=== PATIENT | female | born 1950 | race Caucasian/White ===

== ENCOUNTER → 2017-01-05 | Outpatient (CLI) | payer OTHER ==
[~2017-01-05] MED LIST: ABILIFY2 MG; ALBUTEROL17 GM INH; ATIVAN INJ; COMBIVENT INH14.7 GM INH; CYMBALTA PO; CYMBALTA20 M1; ESTRACE PO; FLEXERIL10 M1 PO; IBUPROFEN600 MG PO; K-DUR20 ME1 DOB; LEVAQUIN PO; NEURONTIN800 MG PO; NEXIUM; PREDNISONE PO; PREDNISONE50 MG PO; PRILOSEC; REGLAN; TESSALON200 MG PO; VITUZ SOLUTION480 ML PO; ZIGRID PO
== END | disposition home or self-care (01) ==
LOC: SEKG 13:52
DX: R00.2 Palpitations (principal)
CPT/HCPCS: 93225; 93226

== ENCOUNTER → 2017-01-11 | Outpatient (CLI) | payer OTHER ==
--- NOTE | ~2017-01-11 | CT57 ---
[facility] A Service of [facility] RADIOLOGY TEXT RESULTS PATIENT: CATHY LUIS LOCATION: [facility] : 54 UNIT #: [id number] AGE: [address]: Richardson Ingram MD SEX: F ORDER DR: [id number] [facility] [address]. [place], [place] [address] [id number] O MR#: [id number] Acc #: [id number] NAME: CATHY LUIS : 1950 SEX: F STUDY DATE/TIME: 01/11/2017 10:26 UNIT: [facility] ROOM: STUDY DESCRIPTION: CT Chest Wo Cont Attending Physician: Richardson Ingram M.D. Referring Physician: Richardson Ingram M.D. Ordering Physician: Richardson Ingram M.D. Primary Care Physician: Ruben Gannon M.D. MEDICAL IMAGING REPORT This report is preliminary unless electronic signature is present EXAM CT chest without contrast, 01/11/2017, 1026 hours. CLINICAL HISTORY 66-year-old woman with a history of chronic cough for several years, progressively worsening recently. History of asthma. COMPARISON Chest x-ray 11/03/2016. No prior chest CT. TECHNIQUE Helical noncontrasted images were obtained from the thoracic inlet through the adrenal glands. Sagittal and coronal reconstructions were performed. Total exam DLP 265 mGy-cm. This CT exam was performed with one or more of the following radiation dose reduction techniques: automatic exposure control, adjustment of mA and/or kV according to patient size, and iterative reconstruction. FINDINGS Images through the thoracic inlet demonstrate no thyromegaly or thyroid mass. There is no adenopathy. Images through the chest demonstrate mild ectasia of the ascending aorta measuring up to 3.4 cm. There are faint coronary calcifications. Cardiac chambers and pericardium are normal. The esophagus is normal. There is no pathologic mediastinal, hilar, or axillary adenopathy. The lungs demonstrate small densely calcified granulomata in the left upper lobe and left lower lobe. There is no evidence of diffuse airspace change. There is minimal reticulonodular change in the medial left lower lobe, likely a small area of scar. There is no definite bronchiectasis or STS. [facility] A Service of [facility] RADIOLOGY TEXT RESULTS PATIENT: CATHY LUIS [facility] UNIT #: [id number] AGE: [address]: Richardson Ingram MD SEX: F ORDER DR: peribronchiolar wall thickening. There are no emphysematous blebs or bullae. Limited views through the upper abdomen are normal. IMPRESSION Chest CT demonstrates benign calcified granulomatous change and minimal reticulonodular change at the medial left lung base felt likely scar. There is no evidence of an acute pulmonary process. No bronchiectasis. No significant emphysematous change or adenopathy. Dictated by... Laverne Landeros M.D. THIS IS AN ELECTRONICALLY VERIFIED REPORT Laverne Landeros M.D. at 01/12/2017 9:27 AM LE/drew TD: 01/11/2017 17:16 JOB #: [id number] MEDICAL IMAGING REPORT COPY
--- NOTE | ~2017-01-11 | PFT ---
[id number] [facility] [address]. [place], [place] [address] [id number] O MR#: [id number] NAME: CATHY LUIS ROOM: SEX: F STUDY DATE/TIME: : 1950 AGE: STUDY DESCRIPTION: Attending Physician: Richardson Ingram M.D. Referring Physician: Richardson Ingram M.D. Primary Care Physician: Ruben Gannon M.D. PULMONARY DIAGNOSTIC REPORT EXAM Pulmonary Function Test DESCRIPTION Spirometry reviewed. FEV1 is 83, FVC is 74, ratio is 85 consistent with no air flow obstruction, no significant bronchodilator response. Total lung capacity is 82. Dictated by... Axel Hutchinson/castillo TD: 01/20/2017 07:12 JOB #: [id number] PULMONARY DIAGNOSTIC REPORT
== END | disposition home or self-care (01) ==
LOC: CCAT 09:48
DX: J45.909 Unspecified asthma, uncomplicated (principal)
CPT/HCPCS: 71250; 94060; 94726; 94729

== ENCOUNTER 2017-01-12 22:29 | Emergency (ER) | payer OTHER | END 2017-01-12 23:49 | disposition home or self-care (01) | LOC: SED 22:29 | DX: R05 Cough (principal); J45.909 Unspecified asthma, uncomplicated; K21.9 Gastro-esophageal reflux disease without esophagitis | CPT/HCPCS: 99282 ==

== ENCOUNTER 2017-03-04 14:05 | Emergency (ER) | payer OTHER, MEDICARE ==
--- NOTE | ~2017-03-04 | CR72 ---
[facility] A Service of [facility] RADIOLOGY TEXT RESULTS PATIENT: CATHY LUIS LOCATION: [facility] : 54 UNIT #: [id number] AGE: [address]: Seamus Lambert MD SEX: F ORDER DR: [id number] [facility] [address] [place], [place] [address] [id number] E MR#: [id number] Acc #: [id number] NAME: CATHY LUIS : 1950 SEX: F STUDY DATE/TIME: 03/04/2017 13:36 UNIT: [facility] ROOM: STUDY DESCRIPTION: CR Chest Single View Portable Attending Physician: Seamus Lambert M.D. Ordering Physician: Seamus Lambert M.D. Primary Care Physician: No Primary Care Physician MEDICAL IMAGING REPORT This report is preliminary unless electronic signature is present EXAM Chest, portable. DATE OF EXAM 03/04/2017, 1336 hours. CLINICAL HISTORY 66-year-old woman with chronic cough and shortness of air, worsening shortness of air and congestion today. COMPARISON 01/11/2017 FINDINGS Upright portable chest demonstrates normal heart size with stable tortuous descending thoracic aorta. Hilar contours are normal. The lungs are clear and there are no effusions. Hardware is present at the lower cervical spine. IMPRESSION No acute cardiopulmonary findings. Dictated by... Laverne Landeros M.D. THIS IS AN ELECTRONICALLY VERIFIED REPORT Laverne Landeros M.D. at 03/07/2017 9:26 AM LE/abigail TD: 03/04/2017 15:30 JOB #: [id number] [facility] A Service [facility] RADIOLOGY TEXT RESULTS PATIENT: CATHY LUIS LOCATION: [facility] : [birth year] UNIT #: [id number] AGE: [address]: Seamus Lambert MD SEX: F ORDER DR: MEDICAL IMAGING REPORT Page 1 of 1 COPY
--- NOTE | ~2017-03-04 | EKG ---
PATIENT: CATHY LUIS UNIT #: [id number] Ventricular Rate: 71 BPM Atrial Rate: 71 BPM P-R Interval: 142 ms QRS Duration: 86 ms Q-T Interval: 402 ms QTC Calculation(Bezet): 436 ms P [place]: 44 degrees Calculated R [place]: -2 degrees Calculated T [place]: -4 degrees Diagnosis Line: Normal sinus rhythm Diagnosis Line: Normal ECG Diagnosis Line: No previous ECGs available Diagnosis Line: Confirmed by GERRI TINAJERO MD ([id number]) on Diagnosis Line: 03/06/2017 8:43:38 AM INTERPRETING MD: SOTERO
[2017-03-04 13:39] LABS: BASOPHIL# 0.1 X10e3 (0-0.3); BASOPHIL% 0.8 % (0-2.5); EOSINOPHIL# 0.1 X10e3 (0-0.7); EOSINOPHIL% 0.8 % (0.0-7.0); HEMOGLOBIN 14.6 gm/dL (12.0-16.0); LYMPHOCYTE# 2.2 X10e3 (1.0-3.5); LYMPHOCYTE% 29.2 % (17.0-45.0); MEAN CELL VOLUME 86.3 FL (83-96); MEAN CORPUSCULAR HEMOGLOBIN 28.6 PG (28-34); MEAN CORPUSCULAR HGB CONC 33.1 g/dL (30-36); MEAN PLATELET VOLUME 9.5 FL (6.5-11.5); MONOCYTE# 0.5 X10e3 (0-1.0); MONOCYTE% 7.2 % (3.0-12.0); NEUTROPHIL# 4.7 X10e3 (1.5-7.1); PLATELET COUNT 250 X10e3 (140-420); RED CELL DISTRIBUTION WIDTH 14.2 % (11.0-15.5); WHITE BLOOD COUNT 7.6 X10e3 (4.0-10.5)
[2017-03-04 13:45] LABS: DIFF IND NO
[2017-03-04 14:22] LABS: POC - CKMB 1.1 ng/mL (0.0-7.9); POC - TROPONIN <0.05 ng/mL (<=0.05)
[2017-03-04 15:06] LABS: ALBUMIN SERUM 4.8 g/dL (3.5-5.0); ALKALINE PHOSPHATASE 80 U/L (32-92); ALT (SGPT) 21 U/L (10-40); AST (SGOT) 27 U/L (10-42); BILIRUBIN,TOTAL 0.9 mg/dL (0.2-2.0); BLOOD UREA NITROGEN 15 mg/dL (9-23); CALCIUM SERUM 10.3 mg/dL (8.4-10.2); CARBON DIOXIDE 25 mmol/L (22-31); CHLORIDE 100 mmol/L (100-111); GLOM FILT RATE Estimated 59.5 mL/min (>60); GLUCOSE FASTING 98 mg/dL (70-110); POTASSIUM 3.9 mmol/L (3.5-5.1); PROTEIN TOTAL SERUM 7.9 g/dL (6.0-8.3); SODIUM 137 mmol/L (135-145)
[2017-03-04 15:08] LABS: BILIRUBIN, DIRECT <0.1 mg/dL (0.0-0.2); BILIRUBIN,INDIRECT 0.8 mg/dL (0.0-0.9)
== END 2017-03-04 17:05 | disposition home or self-care (01) ==
LOC: CED 14:05
PROVIDERS: Emergency Medicine
DX: J98.01 Acute bronchospasm (principal); F41.9 Anxiety disorder, unspecified; F43.10 Post-traumatic stress disorder, unspecified; Z88.0 Allergy status to penicillin; Z88.8 Allergy status to other drugs, medicaments and biological substances
CPT/HCPCS: 36415; 71010; 80048; 80076; 82553; 84484; 85025; 87040; 93005; 94640; 96361; 96374; 96375; 99284; J1200; J2060

== ENCOUNTER → 2017-03-21 | Outpatient (CLI) | payer OTHER, MEDICARE ==
--- NOTE | ~2017-03-21 | MY11 ---
[facility] A Service of [facility] RADIOLOGY TEXT RESULTS PATIENT: CATHY LUIS LOCATION: [facility] : 54 UNIT #: [id number] AGE: [address]: Ruben Gannon MD SEX: F ORDER DR: [id number] [address] [address] [id number] O MR#: [id number] Acc #: [id number] NAME: CATHY LUIS : 1950 SEX: F STUDY DATE/TIME: 03/21/2017 13:20 UNIT: [facility] ROOM: STUDY DESCRIPTION: MY Mammogram Screening Dig Tha Attending Physician: Ruben Gannon M.D. Referring Physician: Ruben Gannon M.D. Ordering Physician: Ruben Gannon M.D. Primary Care Physician: Ruben Gannon M.D. MEDICAL IMAGING REPORT This report is preliminary unless electronic signature is present. EXAM Digital screening mammogram 03/21/2017 [facility] HISTORY 66-year-old woman positive family history, maternal aunt. Annual screen. COMPARISON Mammograms 09/30/2007, 10/09/2008, 08/28/2009 with followup diagnostic right breast imaging 09/02/2009 FINDINGS Digital imaging of each breast was completed utilizing a two-view examination of each breast in craniocaudal and mediolateral-oblique projections. Review and interpretation of digital mammograms include a second review in conjunction with FDA-approved CAD device. There is a normal parenchymal presentation bilaterally consistent with the patient's age. There are no breast masses imaged and no parenchymal asymmetry is visualized. There are no suspicious microcalcifications and I see no focal architectural disturbance. IMPRESSION Negative screening digital mammogram. One-year followup recommended. Patients over the age of 40 are entered into a reminder system with target due date for the next mammogram. A result letter will also be sent to the patient. BIRADS: 1 Negative Dictated by... [facility] A Service [facility] RADIOLOGY TEXT RESULTS PATIENT: CATHY LUIS LOCATION: [facility] : 54 UNIT #: [id number] AGE: [address]: Ruben Gannon MD SEX: F ORDER DR: Seth Sunshine M.D. THIS IS AN ELECTRONICALLY VERIFIED REPORT Seth Sunshine M.D. at 03/22/2017 2:01 PM JBB/shahana TD: 03/22/2017 13:53 JOB #: [id number] MEDICAL IMAGING REPORT Page 1 of 1
== END | disposition home or self-care (01) ==
LOC: SMAM 12:27
DX: Z12.31 Encounter for screening mammogram for malignant neoplasm of breast (principal); Z80.3 Family history of malignant neoplasm of breast
CPT/HCPCS: G0202